=== PATIENT | female | born 1965 | race Caucasian/White ===

== ENCOUNTER 2024-02-22 08:13 | Emergency (ER) | payer OTHER ==
[2024-02-22 08:25] VITALS: TEMP 97.2
--- NOTE | 2024-02-22 08:29 | ERPHSYRPT ---
- History of Present Illness Time Seen by Provider: 02/22/24 08:29 Source: patient Exam Limitations: no limitations Patient Subjective Stated Complaint: Pt states "I was cleaning my bathroom and there was a rough spot and I took a chunk out of my right thumb." Triage Nursing Assessment: Pt presented alert and oriented X 3, skin wpd. Pt ambulates with an upright steady gait, able to speak in clear full sentences. Pt has small chunk of skin out of right lateral thumb. Physician History: This is a 59-year-old right-handed white female patient who presents to the emergency room after accidentally lacerating the lateral aspect of her right thumb. She could not get the bleeding to stop so she came into the emergency department. In addition, she is not up-to-date on her tetanus. Timing/Duration: today Quality: painful Severity: mild Allergies/Adverse Reactions: clarithromycin [From Biaxin] Allergy (Verified 01/09/23 14:14) Penicillins Allergy (Verified 01/09/23 14:14) sulfamethoxazole [From Bactrim] Allergy (Verified 01/09/23 14:14) trimethoprim [From Bactrim] Allergy (Verified 01/09/23 14:14) Home Medications: No Reportable Medications [No Reported Medications] 02/22/24 [History] Hx Tetanus, Diphtheria Vaccination/Date Given: No Hx Influenza Vaccination/Date Given: No Hx Pneumococcal Vaccination/Date Given: No Immunizations Up to Date: No Travel Risk - International Travel Have you traveled outside of the country in past 3 weeks: No - Emerging Infectious Disease Are you exhibiting symptoms associated with any current EIDs: No - Review of Systems Constitutional: No Symptoms Eyes: No Symptoms Ears, Nose, & Throat: No Symptoms Respiratory: No Symptoms Cardiac: No Symptoms Abdominal/Gastrointestinal: No Symptoms Genitourinary Symptoms: No Symptoms Musculoskeletal: No Symptoms Skin: Other (Laceration right thumb) Neurological: No Symptoms Psychological: No Symptoms Endocrine: No Symptoms Hematologic/Lymphatic: No Symptoms Immunological/Allergic: No Symptoms All Other Systems: Reviewed and Negative - Past Medical History Pertinent Past Medical History: Yes Neurological History: No Pertinent History ENT History: No Pertinent History Cardiac History: No Pertinent History Respiratory History: Bronchitis, Pneumonia Endocrine Medical History: No Pertinent History Musculoskeletal History: Fibromyalgia GI Medical History: Diverticulosis, Hernia History: No Pertinent History Psycho-Social History: No Pertinent History Female Reproductive Disorders: Fibroids Other Medical History: abd mass - Past Surgical History Past Surgical History: Yes Neuro Surgical History: No Pertinent History Cardiac: No Pertinent History Respiratory: No Pertinent History Gastrointestinal: No Pertinent History, Hernia Repair Musculoskeletal: No Pertinent History Female Surgical History: Tubal Ligation - Social History Smoking Status: Former smoker Exposure to second hand smoke: No Drug Use: none Patient Lives Alone: No - Nursing Vital Signs Nursing Vital Signs: Initial Vital Signs Temperature 97.2 F 02/22/24 08:21 Pulse Rate 64 02/22/24 08:21 Respiratory Rate 18 02/22/24 08:21 Blood Pressure 175/106 02/22/24 08:21 O2 Sat by Pulse Oximetry 99 02/22/24 08:21 Pain Scale Pain Intensity 0 - Physical Exam General Appearance: no apparent distress, alert, thin Eye Exam: PERRL/EOMI, eyes nml inspection Ears, Nose, Throat Exam: normal ENT inspection, moist mucous membranes Neck Exam: normal inspection, non-tender, supple, full range of motion Respiratory Exam: airway intact, No chest tenderness, No respiratory distress Gastrointestinal/Abdomen Exam: No tenderness Pelvic Exam: not done Rectal Exam: not done Back Exam: normal inspection, normal range of motion, No CVA tenderness, No vertebral tenderness Extremity Exam: normal range of motion, pelvis stable, lacerations (Right thumb) Skin Exam: laceration (Right thumb. Does not require laceration repair. Tissue loss present. Slow ooze from superficial half centimeter diameter site. No vascular, nerve or tendon damage/injury) Lymphatic Exam: No adenopathy SpO2 Interpretation: normal SpO2: 99 O2 Delivery: Room Air Procedures - Additional Procedures Progress: Timeout performed at 8:30 AM. 1 cc of plain 1% lidocaine was injected intradermally after the site was prepped with Hibiclens solution. I used 2 silver nitrate sticks to provide hemostasis. We then applied bacitracin ointment to the site and a pressure dressing was applied. There were no complications. Patient tolerated the procedure well - Course Nursing assessment & vital signs reviewed: Yes Ordered Tests: Medication Summary Discontinued Medications Generic Name Dose Route Start Last Admin Trade Name Freq PRN Reason Stop Dose Admin Bacitracin Zinc Confirm 02/22/24 08:36 Bacitracin Packet 1 Each Pckt Administered 02/22/24 08:37 Dose 1 each .ROUTE .STK-MED ONE Diphtheria/Tetanus/Acell Pertussis 0.5 ml 02/22/24 08:29 Tdap --Diph,Pertuss(Acell),Tet Vac/Pf 0.5 Ml Vial IM 02/22/24 08:30 .ONCE ONE Lidocaine HCl Confirm 02/22/24 08:37 Lidocaine Hcl 1% 20 Ml Mdv 20 Ml Ml Administered 02/22/24 08:38 Dose 1 ml .ROUTE .STK-MED ONE Silver Nitrate Confirm 02/22/24 08:37 Silver Nitrate 1 Pkt Each Administered 02/22/24 08:38 Dose 1 pkt TP .STK-MED ONE Silver Nitrate Confirm 02/22/24 08:44 Silver Nitrate 1 Pkt Each Administered 02/22/24 08:45 Dose 1 pkt TP .STK-MED ONE - Progress Progress: improved, re-examined Progress Note: 02/22/24 08:48 My medical decision making and the assignment of low complexity of this patient's medical issue today is based on review of the patient's past medical history, review the patient's medication list, review patient drug allergy list, history present illness and physical findings on examination. The workup does not require laboratory radiographic studies. Counseled pt/family regarding: diagnosis - Departure Departure Disposition: Home Clinical Impression: Laceration of thumb without complication Condition: Stable Critical Care Time: No Referrals: FAUSTO HINES NP [Primary Care Provider] - Follow up/PCP as directed Additional Instructions: Keep pressure dressing in place until the evening of 02/23/2024. At that time, remove the dressing and allow the soapy water to rinse over the site. Do not rub or scrub the site. Blot dry use a technologies division chair to dry the site and then apply antibiotic ointment of choice and a nonstick gauze to the site. If there are no contraindications, use Tylenol and ibuprofen for pain control. Wear a water proof glove with the nonstick bandage in place while at work Forms: Work/School Release Form
[2024-02-22] MEDS ORDERED: BACIGUENT PACKET ONE (08:36)
[2024-02-22] MEDS ORDERED: XYLOCAINE 1% HCL 20 ML MDV ONE (08:37)
[2024-02-22] MEDS ORDERED: ARZOL Silver Nitrate Applicator TP ONE ×2 (08:37→08:44)
[2024-02-22] MEDS ORDERED: Adacel Vial IM ONE (08:49)
[2024-02-22] MEDS: Adacel Vial IM ONE (08:50)
[2024-02-22] MEDS: BACIGUENT PACKET TP ONE (08:55)
[2024-02-22] MEDS: ARZOL Silver Nitrate Applicator TP ONE ×2 (08:55→08:56)
[2024-02-22] MEDS: XYLOCAINE 1% HCL 20 ML MDV IJ ONE (08:56)
[2024-02-22] MEDS: Xylocaine 1% Vial 30 ML PF IJ ONE (08:56)
[2024-02-22 09:01] VITALS: BP 168/112; PULSE 65; RESP 17; O2SAT 98
== END 2024-02-22 08:59 | disposition home or self-care (01) ==
LOC: ED 08:13
DX: S61.011A Laceration without foreign body of right thumb without damage to nail, initial encounter (principal); W26.8XXA Contact with other sharp object(s), not elsewhere classified, initial encounter; Y93.E9 Activity, other interior property and clothing maintenance; Y92.002 Bathroom of unspecified non-institutional (private) residence as the place of occurrence of the external cause; Z23 Encounter for immunization
CPT/HCPCS: 90471; 90715; 96372; 99283; A9270-GY